=== PATIENT | female | born 1965 | race Caucasian/White ===

== ENCOUNTER 2017-09-18 23:15 | Observation (INO) ==
[2017-09-19 01:10] LABS: Basophils % 0.1 %; Hematocrit 36.4 % (35.3-44.9); Hemoglobin 12.5 g/dL (11.5-15.4); Immature Granulocytes % 0.4 % (0-4); Lymphocytes # 2.6 K/mcL (0.6-4.6); Lymphocytes % 26.8 %; Mean Corpuscular HGB Conc 34.3 g/dL (31.6-35.5); Mean Corpuscular Hemoglobin 28.5 pg (28.0-33.3); Mean Corpuscular Volume 83.1 fL (83.0-100.0); Mean Platelet Volume 9.7 fL (9.4-12.4); Monocytes # 0.7 K/mcL (0.0-1.3); Monocytes % 7.5 %; Neutrophils # 6.2 K/mcL (1.6-8.9); Platelet Count 229 K/mcL (140-400); Red Blood Count 4.38 M/mcL (3.82-4.97); Red Cell Distribution Width 12.7 % (11.5-14.5); Segmented Neutrophils % 65.2 %
[2017-09-19 01:26] LABS: BUN/Creatinine Ratio 16 (6-26); Blood Urea Nitrogen 17 mg/dL (6-20); Calcium 9.4 mg/dL (8.6-10.3); Carbon Dioxide 26 mEq/L (23-29); Chloride 105 mEq/L (98-107); Glucose 140 mg/dL (70-105); Osmolality,Calculated 294 (280-300); Potassium 3.4 mEq/L (3.5-5.1); Sodium 140 mEq/L (136-145); eGFR For African Americans > 60 (> 60); eGFR For Non-African Americans 53 (> 60)
[2017-09-19 01:27] LABS: Troponin I < 0.03 ng/mL (< 0.04)
[2017-09-19] MEDS ORDERED: Ipratropium/Albuterol Neb 3 ML IH ONE ×2 (02:04→16:39)
[2017-09-19] MEDS ORDERED: Nitroglycerin 0.4 MG TAB.SUBL SL PRN (03:09)
[2017-09-19] MEDS ORDERED: Aspirin 81 MG TAB.CHEW PO STA (03:52)
--- NOTE | 2017-09-19 03:52 | Emergency Department Note ---
Disposition Clinical Impression: Chest pain Qualifiers: Chest pain type: unspecified Qualified Code(s): R07.9 - Chest pain, unspecified Disposition: Admitted As Inpatient Condition: Fair Referrals: Jeffery Ellison DO [Primary Care Provider] - Time of Disposition: 03:58 Chest Pain HPI - General Chief Complaint: ED Chest Pain Stated Complaint: CP Time Seen by Provider: 09/19/17 01:11 Source: patient Limitations: no limitations Vital Signs Reviewed: Yes Nursing Notes Reviewed: Yes - History of Present Illness HPI Narrative: Patient is a 52-year-old female who presents to [facility] ED with a chief complaint of chest pain. States her symptoms started around 8 PM this evening when she was mowing the lawn. States it continued throughout and when she finished, she went upstairs to take a shower to see if it would go away. States it has continued. Described as a tightness in the substernal region. Nuys any nausea, vomiting, fever or chills. Her diaphoresis. No abdominal pain, problems with urination or bowel movements. No prior cardiac history. States her father had his first heart attack in his 40s. Past medical history significant for hypertension and hyperlipidemia and prediabetes. Pt complaint: chest pain Onset (ago): hour(s) (4) Duration: constant Onset: during exertion Pain Location: substernal Severity: moderate Severity scale (1-10): 6 Quality: tightness Pain Radiation: none Improves with: nothing Worsens with: nothing Associated symptoms: Denies: nausea, vomiting Treatments prior to arrival chest pain: none - Related Data Allergies Allergy/AdvReac Type Severity Reaction Status Date / Time IVP dye Allergy Hives Uncoded 09/18/17 23:24 All systems ED: reviewed and negative except as stated. Chest Pain PMH - Past Medical History Medical history: Reports: cancer, GERD, hypertension Psychiatric history: Reports: depression - Social History Smoking Status: Never smoker Alcohol use: Reports: none Drug use: Reports: none Physical Exam - General Limitations: no limitations General appearance: alert, appears intoxicated - Head Head exam: atraumatic, normocephalic, normal inspection - Eye Eye exam: Present: normal appearance, EOMI - ENT ENT exam: normal exam, normal oropharynx, mucous membranes moist - Neck Neck exam: Present: normal inspection, full ROM, trachea midline - Chest Chest inspection: Present: normal inspection, symmetric chest wall rise - Respiratory Respiratory exam: Present: normal lung sounds bilaterally - Cardiovascular Cardiovascular exam: Present: regular rate, normal rhythm, normal heart sounds - Abdominal Exam Abdominal exam: Present: soft, Non-Tender. Absent: tenderness, distention, guarding, rebound, rigidity - Extremities Exam Extremities exam: Present: normal inspection, full ROM. Absent: tenderness, pedal edema - Neurological Exam Neurological exam: Present: alert, oriented X3 - Psychiatric Psychiatric exam: Present: normal affect, normal mood - Skin Skin exam: Present: warm, dry, intact, normal color Course Course Narrative: Patient seen and examined. Chest pain since 8 PM. We will do a cardiopulmonary workup. Patient also requesting a breathing treatment since she states she has asthma and wanted to see if this would help with her symptoms. - Reevaluation(s) Reevaluation #1: Labwork unremarkable. Due to the persistent nature of her symptoms, we will go ahead and admit for cardiac workup. I discussed with the hospitalist Dr. Jean who has accepted patient for admission. Aspirin and nitroglycerin ordered. Time: 03:56 Vital Signs Temperature 97.9 F 09/18/17 23:20 Pulse Rate 84 09/18/17 23:20 Respiratory Rate 18 09/18/17 23:20 Blood Pressure 148/87 09/18/17 23:20 O2 Sat by Pulse Oximetry 98 09/18/17 23:20 Temperature 97.9 F 09/18/17 23:20 Pulse Rate 77 09/19/17 03:00 Respiratory Rate 16 09/19/17 03:00 Blood Pressure 128/75 09/19/17 03:00 O2 Sat by Pulse Oximetry 99 09/19/17 03:00 Oxygen Delivery Oxygen Delivery Room Air Chest Pain - Medical Records Medical records reviewed: Yes I reviewed the patient's medical records. - Lab Data Lab results reviewed: Yes I reviewed the patient's lab results. Result diagrams: 09/19/17 00:04 09/19/17 00:04 Lab Results 09/19/17 09/19/17 Range/Units 00:04 00:04 WBC 9.6 (4.3-11.1) K/mcL RBC 4.38 (3.82-4.97) M/mcL Hgb 12.5 (11.5-15.4) g/dL Hct 36.4 (35.3-44.9) % MCV 83.1 (83.0-100.0) fL MCH 28.5 (28.0-33.3) pg MCHC 34.3 (31.6-35.5) g/dL RDW 12.7 (11.5-14.5) % Plt Count 229 (140-400) K/mcL MPV 9.7 (9.4-12.4) fL Immature Gran % 0.4 (0-4) % Seg Neutrophils % 65.2 % Lymphocytes % 26.8 % Monocytes % 7.5 % Eosinophils % 0.0 % Basophils % 0.1 % Neutrophils # 6.2 (1.6-8.9) K/mcL Lymphocytes # 2.6 (0.6-4.6) K/mcL Monocytes # 0.7 (0.0-1.3) K/mcL Eosinophils # 0.0 (0.0-0.6) K/mcL Basophils # 0.0 (0.0-0.2) K/mcL Sodium 140 (136-145) mEq/L Potassium 3.4 L (3.5-5.1) mEq/L Chloride 105 (98-107) mEq/L Carbon Dioxide 26 (23-29) mEq/L BUN 17 (6-20) mg/dL Creatinine 1.08 (0.60-1.20) mg/dL Est GFR ( Amer) > 60 (> 60) Est GFR (Non-Af Amer) 53 L (> 60) BUN/Creatinine Ratio 16 (6-26) Glucose 140 H (70-105) mg/dL Calculated Osmolality 294 (280-300) Calcium 9.4 (8.6-10.3) mg/dL Troponin I < 0.03 (< 0.04) ng/mL - Radiology Data Radiology results reviewed: Yes I reviewed the patient's radiology results. Chest X-Ray 09/18/17 23:26 IMPRESSION: No acute disease. D/ / Bora Wilburn MD / Bora Wilburn MD Interpreting Provider: Bora Wilburn MD - EKG Data EKG attestation: Yes I reviewed and interpreted this EKG. EKG results narrative: EKG done at 2322 shows normal sinus rhythm with a rate of [address] elevation or depression. Normal axis. Heart Score - Score History: Moderately Suspicious EKG: Normal Age: 45-65 Risk Factors: Equal/Greater than 3 risk factor or history of atherosclerotic disease Troponin: Less than normal limit HEART Score Total: 4
--- NOTE | 2017-09-19 03:56 | Emergency Department Note ---
Disposition Clinical Impression: Chest pain Qualifiers: Chest pain type: unspecified Qualified Code(s): R07.9 - Chest pain, unspecified Disposition: Admitted As Inpatient Condition: Fair General Adult HPI - General Chief complaint: ED Chest Pain Stated complaint: CP Time Seen by Provider: 09/19/17 01:11 Source: patient Limitations: no limitations Nursing Notes Reviewed: Yes Vital Signs Reviewed: Yes - History of Present Illness Pain Scale: 6 - Related Data Home Medications Medication Instructions Recorded Confirmed Loratadine [Claritin] 10 mg PO DAILY 09/19/17 09/19/17 Losartan/Hydrochlorothiazide 1 each PO DAILY 09/19/17 09/19/17 [Losartan-Hctz 100-25 mg Tab] Lovastatin [Altoprev] 40 mg PO DAILY 09/19/17 09/19/17 Omeprazole [PriLOSEC] 40 mg PO DAILY 09/19/17 09/19/17 Venlafaxine XR (24 HR) [Effexor XR] 150 mg PO DAILY 09/19/17 09/19/17 traZODone [TraZODone] 50 mg PO HS 09/19/17 09/19/17 Allergies Allergy/AdvReac Type Severity Reaction Status Date / Time IVP dye Allergy Hives Uncoded 09/18/17 23:24 Past Medical History - Past Medical History Medical history: Reports: cancer, GERD, hypertension Psychiatric history: Reports: depression - Social History Smoking Status: Never smoker Alcohol use: Reports: none Drug use: Reports: none Physical Exam - General Limitations: no limitations General appearance: alert, appears intoxicated Course Vital Signs Temperature 97.9 F 09/18/17 23:20 Pulse Rate 84 09/18/17 23:20 Respiratory Rate 18 09/18/17 23:20 Blood Pressure 148/87 09/18/17 23:20 O2 Sat by Pulse Oximetry 98 09/18/17 23:20 Temperature 97.9 F 09/18/17 23:20 Pulse Rate 79 09/19/17 03:30 Respiratory Rate 16 09/19/17 03:30 Blood Pressure 132/79 09/19/17 03:30 O2 Sat by Pulse Oximetry 95 09/19/17 03:30 Oxygen Delivery Oxygen Delivery Room Air Medical Decision Making - Lab Data Result diagrams: 09/19/17 00:04 09/19/17 00:04 Lab Results 09/19/17 09/19/17 Range/Units 00:04 00:04 WBC 9.6 (4.3-11.1) K/mcL RBC 4.38 (3.82-4.97) M/mcL Hgb 12.5 (11.5-15.4) g/dL Hct 36.4 (35.3-44.9) % MCV 83.1 (83.0-100.0) fL MCH 28.5 (28.0-33.3) pg MCHC 34.3 (31.6-35.5) g/dL RDW 12.7 (11.5-14.5) % Plt Count 229 (140-400) K/mcL MPV 9.7 (9.4-12.4) fL Immature Gran % 0.4 (0-4) % Seg Neutrophils % 65.2 % Lymphocytes % 26.8 % Monocytes % 7.5 % Eosinophils % 0.0 % Basophils % 0.1 % Neutrophils # 6.2 (1.6-8.9) K/mcL Lymphocytes # 2.6 (0.6-4.6) K/mcL Monocytes # 0.7 (0.0-1.3) K/mcL Eosinophils # 0.0 (0.0-0.6) K/mcL Basophils # 0.0 (0.0-0.2) K/mcL Sodium 140 (136-145) mEq/L Potassium 3.4 L (3.5-5.1) mEq/L Chloride 105 (98-107) mEq/L Carbon Dioxide 26 (23-29) mEq/L BUN 17 (6-20) mg/dL Creatinine 1.08 (0.60-1.20) mg/dL Est GFR ( Amer) > 60 (> 60) Est GFR (Non-Af Amer) 53 L (> 60) BUN/Creatinine Ratio 16 (6-26) Glucose 140 H (70-105) mg/dL Calculated Osmolality 294 (280-300) Calcium 9.4 (8.6-10.3) mg/dL Troponin I < 0.03 (< 0.04) ng/mL Attestation Statement - Attestation Attestation: I, Honorio Longo MD, personally evaluated this patient and discussed their management with the resident physician. I reviewed the resident's note and agree with the documented findings, medical decision making, and plan of care. 52-year-old female presents to the emergency department with a complaint of some mid chest tightness that started about 8 PM this evening while she was mowing her lawn. The pain radiates to the back. Some mild nausea and mild shortness of breath. No cardiac history. On examination patient is a well-developed well-nourished well-appearing female in no acute distress. She is alert and oriented 3. There is no cyanosis or diaphoresis. Chest is nontender to palpation. Breath sounds are clear and equal bilaterally. Heart regular rate and rhythm. Abdomen soft and nontender with normal bowel sounds. EKG shows a normal sinus rhythm with ventricular rate of 82. No acute ST segment elevation or depression. No hernia or ectopy. Chest x-ray negative. Labs reviewed. Troponin normal. The hospitalist, Dr. Jean, was consulted and accepted admission of the patient.
--- NOTE | 2017-09-19 04:43 | Internal Med History&Physical ---
Date of Encounter: 09/19/17 Time of Encounter: 04:43 Internal Medicine - H&P: HPI Chief complaint: CP History of present illness: Ms. Geiger is a 52 year old female who presents to [facility] ED with a chief complaint of pressure like chest pain that was started and the patient was mowing the lawn, the the pain is not radiating and was no alleviating factor or exacerbating factors. She denies any nausea, vomiting, fever or chills. The patient has no history of prior heart disease however she stated that her father had his first heart attack in his 40s. Past medical history significant for hypertension and hyperlipidemia and prediabetes. The patient was admitted for further evaluation and management and to rule out acute cardiac syndrome. Past Med Surg Social Fam HX - Past Medical History Medical history: cancer, GERD, hypertension Additional medical history: Sleep apnea-CPAP Psychiatric history: depression - Past Surgical History Additional surgical history: Back Surgery - Social History Smoking Status: Never smoker Alcohol use: none Drug use: none - Family History Father Living Status: Cause of : Lung Cancer Hx Family Cardiac Disorders: Yes (HTN) Hx Family Endocrine Disorder: Yes Mother Living Status: Cause of : COPD Internal Medicine - H&P: Meds Loratadine [Claritin] 10 mg PO DAILY 09/19/17 [History] Losartan/Hydrochlorothiazide [Losartan-Hctz 100-25 mg Tab] 1 each PO DAILY 09/19 [History] Lovastatin [Altoprev] 40 mg PO DAILY 09/19/17 [History] Omeprazole [PriLOSEC] 40 mg PO DAILY 09/19/17 [History] Venlafaxine XR (24 HR) [Effexor XR] 150 mg PO DAILY 09/19/17 [History] traZODone [TraZODone] 50 mg PO HS 09/19/17 [History] 3 Allergy/AdvReac Type Severity Reaction Status Date / Time IVP dye Allergy Hives Uncoded 09/18/17 23:24 All Systems PM: A 10-system review of systems was performed and is negative for pertinent findings except as documented above in the HPI. - Constitutional Constitutional: no chills, no fever(s), no night sweats - Cardiovascular Cardiovascular ROS IM: chest pain, no diaphoresis, no dyspnea, no lightheadedness, no palpitations, no syncope - Respiratory Respiratory: no cough, no dyspnea, no wheezing, no excessive phlegm production - Gastrointestinal Gastrointestinal: no abdominal pain, no diarrhea, no hematemesis, no hematochezia, no melena, no nausea, no vomiting - Neurological Neurological ROS: no confusion, no convulsions, no focal weakness, no numbness, no tingling, no tremor(s) - Constitutional Vitals: Temp Pulse Resp BP Pulse Ox 98.3 F 73 15 136/75 97 09/19/17 04:17 09/19/17 04:17 09/19/17 04:17 09/19/17 04:17 09/19/17 04:17 General appearance: Present: A&O X 3 - Head Head exam: Present: atraumatic, normocephalic - Neck Neck exam general surgery: Present: supple, trachea midline. Absent: lymphadenopathy - Respiratory Respiratory exam: Present: CTAB. Absent: accessory muscle use, rales, rhonchi, wheezes - Cardiovascular Cardiovascular exam: Present: RRR, +S1, +S2. Absent: diastolic murmur, gallop, rubs, systolic murmur - GI/Abdominal GI/Abdominal exam: Present: normal bowel sounds, soft, no peritoneal signs. Absent: distended, tenderness - Extremities Exam Extremities exam: Present: warm, radial pulses palpable and symmetrical. Absent : calf tenderness, cyanotic, pedal edema Internal Med - H&P Results - Labs CBC & Chem 7: 09/19/17 00:04 09/19/17 00:04 - Assessment and plan (1) Chest pain Current Visit: Yes Status: Acute Assessment and plan: Chest pain R/o CAD DD *Muskuloskeletal CP - myofascial strain, costochondritis *GERD *Esophageal spasm *Pericarditis - unlikely *Pneumonia - no infiltrate on CXR PLAN: - cardiac enzymes x 2 q 8 hr - EKG now and in AM - ASA - Metoprolol 12.5 mg PO BID, hold for HR lower than 55 bpm - O2 by NC to keep SpO2 greater than 92% - UA - CBCD, BMP in AM - Fasting lipids - Morphine 2 mg IV q 2-4 hr PRN chest pain - Tylenol 650 mg PO q 4-6 hr PRN headache - Heparin 5000 U SQ BID - 2D Echo - Cardiology consult Qualifiers: Chest pain type: unspecified Qualified Code(s): R07.9 - Chest pain, unspecified (2) Essential hypertension Current Visit: Yes Status: Acute Assessment and plan: We will continue home meds and continue to monitor blood pressure while inpatient (3) Hyperlipidemia Current Visit: Yes Status: Acute Assessment and plan: We will cont home statin. FLP. (4) DVT prophylaxis Current Visit: Yes Status: Acute Assessment and plan: Heparin 5000 BID - Time Spent With Patient Total time spent is greater than 50% in coordination of care (as documented) at patient's floor/unit and/or counseling patient:
[2017-09-19] MEDS ORDERED: Acetaminophen 325 MG TABLET PO PRN (04:46)
[2017-09-19] MEDS ORDERED: *HR* HYDROcodone/Acet 5/325 mg TABLET PO PRN (04:46)
[2017-09-19] MEDS ORDERED: Naloxone 0.4 MG/ML INJ IVP PRN (04:46)
[2017-09-19] MEDS: *HR* Heparin 5,000 UNIT/ML VIAL SQ SCH ×2 (05:25→18:29)
[2017-09-19 05:56] LABS: INR 1.1; Prothrombin Time 12.4 Seconds (9.4-12.1)
[2017-09-19 05:59] LABS: Activated Partial Thrombo Time 52.5 Seconds (26.0-36.0)
[2017-09-19] MEDS ORDERED: Venlafaxine XR (24 HR) 150 MG CAP.ER.24H PO SCH ×2 (09:00→21:00)
[2017-09-19 10:09] LABS: Bilirubin,Urine Negative (Negative); Blood,Urine Negative (Negative); Clarity,Urine Cloudy (Clear); Color,Urine Yellow (Yellow); Glucose,Urine (UA) Normal (Normal); Ketones,Urine Negative (Negative); Leukocyte Esterase,Urine Trace (Negative); Nitrite,Urine Negative (Negative); PH,Urine 5.5 pH Units (5.0-8.0); Protein,Urine Negative (Neg-Trace); Specific Gravity,Urine 1.022 (1.010-1.025); Urobilinogen,Urine Normal (Normal)
[2017-09-19 10:12] LABS: Bacteria,Urine Many per hpf (None-Few); Hyaline Casts,Urine None Seen per lpf (None-Few); Squamous Epithelial Cell,Urine Many per lpf (None-Few)
[2017-09-19] MEDS ORDERED: Regadenoson 0.4 MG/5 ML SYRINGE IVP ONE (11:47)
[2017-09-19] MEDS: Losartan/HCTZ 50-12.5 TABLET PO SCH (14:00)
[2017-09-19] MEDS: Loratadine 10 MG TABLET PO SCH (14:00)
--- NOTE | 2017-09-19 16:26 | Electrocardiograph Report ---
[address] [place], [place] [address] Test Date: 2017-09-18 Pat Name: Eugenie Geiger Department: 102 Room: 3B Gender: F [employer] Worker: Papi : [id number] Requested By: Honorio Longo Order Number: [id number] Reading MD: Awilda Frey Measurements Intervals [place] Rate: 82 P: 49 WY: 138 QRS: 37 QRSD: 92 T: 42 QT: 373 QTc: 412 Interpretive Statements SINUS RHYTHM Electronically Signed On 09-19-2017 16:25:34 EDT by Awilda Frey
[2017-09-19] MEDS ORDERED: Ibuprofen 600 MG TABLET PO ONE (16:39)
--- NOTE | 2017-09-19 16:42 | Discharge Summary ---
- NOTES TO OUTPATIENT PROVIDER Notes to Outpatient Provider: Patient presented to the emergency department with chest pain that began while she was mowing the lawn. Patient was on a riding mower and began having wheezing and shortness of breath that is worse with lying down. Patient reports that she feels some of this is due to allergies. Patient's lungs sounds are very diminished posteriorly and chest pain persists anteriorly and upper chest. Chest x-ray is negative, EKG was negative. Stress test was negative. Echocardiogram showed an LVEF of 60% with indeterminant diastolic function, mild TR, normal motion in all wall segments. Suspect that this is related to asthma that she is not in acute exacerbation. Recommended follow-up with primary care after discharge. Orders not resulted at time of discharge: Pending orders 09/19/17 08:03 NM faiza perf SPECT multi [NM] Routine 09/19/17 17:00 Troponin I Q6H 09/20/17 04:00 B-Type Natriuretic Peptide AM 0400 Complete Blood Count [HEME] AM 0400 Comprehensive Metabolic Panel AM 0400 Lipid Panel AM 0400 Magnesium AM 0400 Phosphorous AM 0400 Date of Encounter: 09/19/17 Time of Encounter: 11:05 - Discharge Diagnosis (1) Chest pain Priority: Primary Status: Acute Assessment and Plan: Troponins negative, Stress negative, TTE shows LVEF of 60%, mild TR. Chest x-ray is negative. Chest pain began while patient was on a riding mower, she states that it was throwing grass all over, patient reports history of asthma and allergies. The pain is not reproducible. Her lung sounds are very diminished posteriorly, no wheezing noted. We will keep patient overnight for observation, suspect this is were respiratory in nature. Could discharge in the morning if she is stable. Continue telemetry, bronchodilators One-time dose of ibuprofen for chest wall pain Continue aspirin, beta shala, oxygen as needed, heparin for DVT prophylaxis. Consider cardiology consultation in the morning if chest pain persists Qualifiers: Chest pain type: unspecified Qualified Code(s): R07.9 - Chest pain, unspecified (2) Essential hypertension Priority: Secondary Status: Chronic Assessment and Plan: Chronic. Well controlled. Continue current medications. (3) Hyperlipidemia Priority: Secondary Status: Chronic Assessment and Plan: Continue Lipitor. Qualifiers: Hyperlipidemia type: unspecified Qualified Code(s): E78.5 - Hyperlipidemia , unspecified (4) DVT prophylaxis Priority: Secondary Status: Acute Assessment and Plan: Heparin SQ 5000 BID Hospital course: Ms. Geiger is a 52 year old female with past medical history of GERD, depression, hypertension, seasonal allergies, hyperlipidemia. Patient presented to the emergency department with upper chest pain without radiation. Onset while she was riding on a riding mower on her lawn. Currently on examination today rated chest pain 3/10 and describes the pain is worse when she is lying supine and chest pain is improved when she is sitting straight up. Patient reports that she has wheezing and shortness of breath when she is lying down she denies any nausea, vomiting, diaphoresis. Patient has history of asthma and states that while she was mowing grass was being thrown everywhere she believes this could be asthma exacerbation. All cardiac testing has been negative, she is still having the chest pain. We will observe her again overnight and increase her bronchodilators, consider cardiology consultation if chest pain persists in the morning. Discharge discussed with: patient, family - Time Spent with Patient Total time spent providing and/or coordinating discharge services: Less than 30 minutes - Discharge Medications Home Medications: Loratadine [Claritin] 10 mg PO DAILY 09/19/17 [History] Losartan/Hydrochlorothiazide [Losartan-Hctz 100-25 mg Tab] 1 each PO DAILY 09/19 [History] Lovastatin [Altoprev] 40 mg PO DAILY 09/19/17 [History] Omeprazole [PriLOSEC] 40 mg PO DAILY 09/19/17 [History] Venlafaxine XR (24 HR) [Effexor Xr] 150 mg PO DAILY 09/19/17 [History] traZODone [TraZODone] 50 mg PO HS 09/19/17 [History] Allergies/Adverse Reactions: 3 Allergy/AdvReac Type Severity Reaction Status Date / Time IVP dye Allergy Hives Uncoded 09/18/17 23:24 Date of admission: 09/19/17 03:19 Primary care physician: Jeffery Ellison DO Discharging clinician: Laura Angelo Anticipated date of discharge: 09/19/17 - Constitutional Vitals: Temp Pulse Resp BP Pulse Ox 98.7 F 74 18 125/77 95 09/19/17 16:19 09/19/17 16:19 09/19/17 16:19 09/19/17 16:19 09/19/17 16:19 General appearance: Present: cooperative, A&O X 3, pleasant, no acute distress, answers questions appropriately - Head Head exam: Present: atraumatic, normal inspection, normocephalic - Eye Eye exam: Present: normal appearance, conjuntiva pink, sclera anicteric - Neck Neck exam general surgery: Present: normal inspection, supple, trachea midline. Absent: lymphadenopathy, tenderness - Respiratory Respiratory exam: Present: CTAB. Absent: accessory muscle use, rales, rhonchi, wheezes - Cardiovascular Cardiovascular exam: Present: RRR, +S1, +S2. Absent: diastolic murmur, gallop, rubs, systolic murmur - GI/Abdominal GI/Abdominal exam: Present: normal bowel sounds, soft. Absent: distended, hepatomegaly, tenderness - Extremities Exam Extremities exam: Present: normal capillary refill, normal inspection, warm, radial pulses palpable and symmetrical. Absent: calf tenderness, cyanotic, pedal edema, tenderness - Neurological Exam Neurological exam: Present: alert, oriented X3, no focal deficits. Absent: facial droop, speech deficit - Skin Skin exam: Present: dry, intact, normal color, warm. Absent: rash - Patient Status Disposition: Home, Self-Care Condition: Good Functional capacity at discharge: independent ambulation Overall status at discharge: patient is progressing back to baseline - Discharge Instructions Follow Up With: Jeffery Ellison DO [Primary Care Provider] - Forms: ED Satisfaction Letter Additional Instructions: Please follow up with your PCP in the next 5-7 days for a recheck. Return to the ER as needed for any other problems or concerns, or if your symptoms return or worsen. Take your medications as directed. Return to your normal diet and activities as tolerated. - Diet and Activity Activity: increase activity as tolerated, resume usual activities as tolerated Diet: advance to your usual diet
[2017-09-19] MEDS: Ipratropium/Albuterol Neb 3 ML IH SCH ×2 (18:23→19:52)
[2017-09-19] MEDS ORDERED: traZODone 50 MG TABLET PO SCH (21:00)
[2017-09-20] MEDS: Ipratropium/Albuterol Neb 3 ML IH SCH ×3 (00:07→07:35)
[2017-09-20] MEDS: *HR* Heparin 5,000 UNIT/ML VIAL SQ SCH (05:30)
[2017-09-20 05:48] LABS: Hematocrit 37.3 % (35.3-44.9); Hemoglobin 12.5 g/dL (11.5-15.4); Immature Granulocytes % 0.3 % (0-4); Lymphocytes # 1.9 K/mcL (0.6-4.6); Lymphocytes % 33.2 %; Mean Corpuscular HGB Conc 33.5 g/dL (31.6-35.5); Mean Corpuscular Hemoglobin 29.3 pg (28.0-33.3); Mean Corpuscular Volume 87.4 fL (83.0-100.0); Mean Platelet Volume 10.1 fL (9.4-12.4); Monocytes # 0.5 K/mcL (0.0-1.3); Monocytes % 9.3 %; Neutrophils # 3.3 K/mcL (1.6-8.9); Platelet Count 217 K/mcL (140-400); Red Blood Count 4.27 M/mcL (3.82-4.97); Red Cell Distribution Width 12.8 % (11.5-14.5); Segmented Neutrophils % 57.2 %
[2017-09-20 05:57] LABS: Alanine Aminotransferase 20 Units/L (7-52); Albumin 3.9 g/dL (3.5-5.7); Albumin/Globulin Ratio 1.8 (1.1-2.2); Alkaline Phosphatase 72 Units/L (34-104); Aspartate Amino Transferase 18 Units/L (13-39); BUN/Creatinine Ratio 13 (6-26); Bilirubin,Total 0.3 mg/dL (0.3-1.0); Blood Urea Nitrogen 15 mg/dL (6-20); Calcium 9.5 mg/dL (8.6-10.3); Carbon Dioxide 30 mEq/L (23-29); Chloride 105 mEq/L (98-107); Chol/HDL Ratio 5.4 (0-4.9); Cholesterol 146 mg/dL (< 200); Globulin 2.2 g/dL (2.4-3.5); Glucose 135 mg/dL (70-105); HDL Cholesterol 27 mg/dL (40-59); Magnesium 2.2 mg/dL (1.6-2.6); Osmolality,Calculated 297 (280-300); Phosphorous 5.1 mg/dL (2.7-4.5); Sodium 142 mEq/L (136-145); Total Protein 6.1 g/dL (6.4-8.9); Triglycerides 471 mg/dL (< 150); eGFR For African Americans > 60 (> 60); eGFR For Non-African Americans 50 (> 60)
[2017-09-20 07:10] VITALS: BP 95/57
[2017-09-20] MEDS: Loratadine 10 MG TABLET PO SCH (07:49)
[2017-09-20] MEDS: Losartan/HCTZ 50-12.5 TABLET PO SCH (07:50)
--- NOTE | 2017-09-20 15:07 | Internal Med Progress Note ---
Date of Encounter: 09/20/17 Time of Encounter: 09:45 - Assessment and plan (1) Chest pain Status: Acute Assessment and plan: Possibly related to mild asthma/allergies. Cardiac testing negative with normal nuclear stress test and no wall motion abnormalities on echocardiogram. Symptoms improved with breathing treatments. Lungs are clear, medically stable for discharge today, patient will receive prescription for rescue inhaler. Encouraged to follow up with PCP. Qualifiers: Chest pain type: unspecified Qualified Code(s): R07.9 - Chest pain, unspecified (2) Essential hypertension Status: Chronic (3) Hyperlipidemia Status: Chronic Qualifiers: Hyperlipidemia type: unspecified Qualified Code(s): E78.5 - Hyperlipidemia , unspecified (4) DVT prophylaxis Status: Acute - Time Spent With Patient Total time spent is greater than 50% in coordination of care (as documented) at patient's floor/unit and/or counseling patient: - Subjective Interval history: Feels better with breathing treatments. Improved chest tightness and shortness of breath. - Constitutional Vitals: Temp Pulse Resp BP Pulse Ox 98.4 F 70 18 95/57 98 09/20/17 07:05 09/20/17 07:05 09/20/17 07:35 09/20/17 07:05 09/20/17 07:35 General appearance: Present: cooperative, A&O X 3, answers questions appropriately - Respiratory Respiratory exam: Present: CTAB. Absent: accessory muscle use, rales, rhonchi, wheezes - Cardiovascular Cardiovascular exam: Present: RRR, +S1, +S2. Absent: diastolic murmur, gallop, rubs, systolic murmur Internal Medicine: Result - Labs CBC & Chem 7: 09/20/17 04:19 09/20/17 04:19 Labs: Short CBC 09/20/17 Range/Units 04:19 WBC 5.8 (4.3-11.1) K/mcL Hgb 12.5 (11.5-15.4) g/dL Hct 37.3 (35.3-44.9) % Plt Count 217 (140-400) K/mcL Neutrophils # 3.3 (1.6-8.9) K/mcL BMP 09/20/17 04:19 Sodium 142 Potassium 4.0 Chloride 105 Carbon Dioxide 30 H BUN 15 Creatinine 1.14 Glucose 135 H Calcium 9.5 Cardiac Enzymes 09/19/17 Range/Units 16:43 Troponin I < 0.03 (< 0.04) ng/mL Liver Function 09/20/17 Range/Units 04:19 Total Bilirubin 0.3 (0.3-1.0) mg/dL AST 18 (13-39) Units/L ALT 20 (7-52) Units/L Alkaline Phosphatase 72 (34-104) Units/L Albumin 3.9 (3.5-5.7) g/dL - ABG Interpretation ABG results: PT/INR, D-dimer PT 12.4 Seconds (9.4-12.1) H 09/19/17 04:57 Consult Discharge Plan - Plan Instructions: Albuterol (By breathing), Chest Pain (DC), Chronic Hypertension ( DC) Additional Instructions: Please follow up with your PCP in the next 5-7 days for a recheck. Return to the ER as needed for any other problems or concerns, or if your symptoms return or worsen. Take your medications as directed. Return to your normal diet and activities as tolerated. Referrals: Jeffery Ellison DO [Primary Care Provider] - Prescriptions: Albuterol Sulfate [Albuterol Inhaler] 2 puff IH Q6HR PRN #2 [email or web address] PRN Reason: Shortness Of Breath/Wheezing
== END 2017-09-20 11:11 | disposition home or self-care (01) ==
LOC: 3BNU 23:15 → EMEROO 23:15 → SUATTDRO 09-19 03:19 → 3BNU 09-19 04:03
PROVIDERS: ADMIT Internal Medicine; ATTEND Internal Medicine